=== PATIENT | female | born 1970 | race Caucasian/White ===

== ENCOUNTER 2016-11-07 17:51 | Inpatient (IN) | payer OTHER, BC ==
[~2016-11-07] VITALS: Ht 170.1 cm; Wt 85.0 kg
[2016-11-07] VITALS (8 sets, daily range): BP systolic 154–180; BP diastolic 64–88
--- NOTE | ~2016-11-07 | CON ---
[place], [place] REPORT OF CONSULTATION NAME: CLAYTON OSORIO UNIT #: [id number] ROOM: 425 DOCTOR: SHAGUFTA ALMANZATAMELA BIRTHDATE: [birth year] DOS: 11/08/2016 REQUESTING PHYSICIAN: Dr. Knutson REASON FOR CONSULTATION: Chest pain. ASSESSMENT: 1. Current presentation with right upper quadrant pain. 2. Right-sided chest pain. 3. Single elevated troponin out of 5 values. 4. Bigeminy occurring while patient in severe pain. 5. Recent cholecystectomy at [facility]. PLAN: 1. Continue cycle of cardiac enzymes including CPK and MB. 2. Proceed with echocardiogram on urgent basis. 3. Consider surgical consultation. 4. No further cardiac testing at this time. 5. Hold on Naprosyn and aspirin for now. HISTORY AND PHYSICAL: The patient is a pleasant 46-year-old female unknown to our practice, was referred by Dr. Knutson for evaluation of complaint of chest pain. Apparently, the pain has occurred after presenting with right upper quadrant pain following the patient's recent cholecystectomy at [facility]. The patient in current severe pain cannot communicate, but expressing the pain that started in the right upper quadrant following her surgery, the pain apparently is radiating to the right side of the chest along to the shoulder on the right side only. Nothing in the middle and substernal or left sided. No heaviness or tightness. It has some relation to inspiration. No fever, no chills. The patient did not have a bowel movement since her surgery. This has been a while now. The patient is nauseated and having a vomit bag next to her. The patient did not take her breakfast. So far, CT scan of the chest and abdomen and pelvis was negative for any acute abnormalities. V/Q scan was read as normal even though there is a questionable defect in the right upper lobe of the lungs. Prior to this presentation, the patient had been quite doing well and never had any cardiac complaint and never had any chest pain, chest pressure, heaviness, tightness or jaw pain, never had any symptomatic palpitation. No PND or orthopnea. No pedal edema. PAST MEDICAL HISTORY: As detailed in my assessment. SOCIAL HISTORY: The patient denies any tobacco, alcohol or illicit drug abuse. FAMILY HISTORY: There is no other family history of heart disease. CURRENT MEDICATIONS: Include, 1. Vitamin D. 2. Effexor. 3. Nolvadex. 4. Morphine. [place], [place] REPORT OF CONSULTATION NAME: CLAYTON OSORIO UNIT #: [id number] ROOM: 425 DOCTOR: TAMELA EAGLE MD BIRTHDATE: [birth year] 5. Colace. 6. Nitroglycerin. 7. Percocet. 8. Naprosyn. 9. Lovenox. 10. Restoril. 11. Zofran. 12. Magnesium. 13. Dulcolax. 14. Tylenol. ALLERGIES: THE PATIENT IS ALLERGIC TO IBUPROFEN. REVIEW OF SYSTEMS: This was not done today. The patient in moderate to severe distress due to her right upper quadrant pain and right chest pain. PHYSICAL EXAMINATION: GENERAL: The patient is alert, oriented x3. The patient is sitting up in a chair in moderate to severe pain, mainly right upper quadrant. The patient has a hand on the site of the surgery along with pain mainly in the right shoulder. No specific left substernal or left-sided chest pains. VITAL SIGNS: Blood pressure 158/81, heart rate 74, respiratory rate of 18, temperature 97.2. HEENT: Extraocular muscles intact. Pupils equal, round, reactive to light. Conjunctivae: No pallor. Throat: No petechiae. NECK: Good carotid upstroke. Unable to appreciate any bruit, no lymphadenopathy, no thyromegaly. HEART: S1, S2 with faint holosystolic murmur heard in the left upper sternal border. Loud P2. No rub. No retrosternal heave. CHEST AND BACK: No deformities. LUNGS: Significant decrease in air movement in the right lower lobe. No wheezing or rales. ABDOMEN: Obese, soft, significant tenderness with any superficial palpation. Difficult to evaluate any masses or bruits. There is no bowel sounds. LOWER EXTREMITIES: No edema with faint distal pulses. NEUROLOGIC: Grossly nonfocal. SKIN: No significant rash. DIAGNOSTIC DATA: Electrocardiogram showed normal sinus rhythm, mild nonspecific ST changes. Rhythm strip from last night showing the run of bigeminy. LABORATORY DATA: White count 6.9, then 10.0, then 10.2; hemoglobin 13.1, slightly elevated neutrophils even though it was normal on presentation. Potassium 4.4, creatinine 0.7, BUN ____. GFR more than 60%. Normal bilirubin and elevated ALT 178, elevated AST of 112. Magnesium 1.8, total cholesterol 218, HDL 42, LDL 135. TSH 0.6, T4 1.09. [place], [place] REPORT OF CONSULTATION NAME: CLAYTON OSORIO UNIT #: [id number] ROOM: 425 DOCTOR: TAMELA EAGLE MD BIRTHDATE: [birth year] TAMELA EAGLE MD CM:CONSTR:REPORT OF CONSULTATION 1028 11/09/16 1303 interface
[2016-11-07 18:17] LABS: BASO # 0.1 10*3/uL (0.0-0.1); EOS # 0.1 10*3/uL (0.0-0.4); HEMATOCRIT 38.9 % (37.0-47.0); HEMOGLOBIN 13.1 g/dl (12.0-16.0); IG # 0.1 10*3/uL (0.0-0.1); LYMPH # 1.4 10*3/uL (1.3-4.4); LYMPH % 20.8 % (27.0-41.0); MEAN CORPUSCULAR HGB 28.3 pg (27.0-31.0); MEAN CORPUSCULAR HGB CONC 33.7 g/dl (33.0-37.0); MEAN PLATELET VOLUME 10.4 fl (9.6-12.3); MONO # 0.5 10*3/uL (0.1-1.0); MONO % 7.2 % (3.0-9.0); NEUT # 4.7 10*3/uL (2.3-7.9); NEUT % 67.1 % (47.0-73.0); PLATELET COUNT AUTOMATED 191 10*3/uL (130-400); RED BLOOD COUNT 4.63 10*6/uL (4.10-5.10); RED CELL DISTRI WIDTH 12.5 % (0-14.5); WHITE BLOOD COUNT 6.9 10*3/uL (4.8-10.8)
[2016-11-07] MEDS ORDERED: TAMOXIFEN CITRA20 MG PO (18:19)
[2016-11-07] MEDS ORDERED: PERCOCET 325 MG1 TA2 PO (18:19)
[2016-11-07 18:34] LABS: ALBUMIN 3.9 gm/dl (3.1-4.5); ALKALINE PHOSPHATASE 61 U/L (45-117); BILIRUBIN, TOTAL 0.5 mg/dl (0.2-1.0); BUN 9 mg/dl (7-24); CARBON DIOXIDE 29 mmol/L (21-32); CHLORIDE 101 mmol/L (98-107); EST GLOM FILT AFRICAN AMERICAN > 60 ml/min; GLUCOSE 113 mg/dL (65-99); POTASSIUM 3.7 mmol/L (3.5-5.1); SGOT/AST 85 IU/L (3-35); SGPT/ALT 118 U/L (12-78); SODIUM 139 mmol/L (136-145); TOTAL PROTEIN 7.6 gm/dL (6.4-8.2)
[2016-11-07 20:13] LABS: LA>2 REFLEX 2 HR DRAW NOW
[2016-11-08 00:03] VITALS: BP 170/84
[2016-11-08 01:56] LABS: BILIRUBIN NEGATIVE (NEGATIVE); BLOOD 1+ (NEGATIVE); CLARITY SL CLOUDY (CLEAR); COLOR YELLOW (YELLOW); GLUCOSE NEGATIVE (NEGATIVE); KETONE NEGATIVE (NEGATIVE); LEUKO ESTERASE TRACE (NEGATIVE); NITRITE NEGATIVE (NEGATIVE); PROTEIN NEGATIVE (NEGATIVE); SPECIFIC GRAVITY <= 1.005 (1.005-1.030); UROBILINOGEN 0.2 E.U./dl (0.2-1.0)
[2016-11-08 02:02] LABS: EPITHELIAL CELLS TNTC; URINE REFLEX COMMENT YES (NO); YEAST TRACE
[2016-11-08 03:15] VITALS: BP 144/63
[2016-11-08] MEDS ORDERED: EFFEXOR XR75 M1 PO (03:32)
[2016-11-08] MEDS ORDERED: NAPROSYN500 MG PO (03:33)
[2016-11-08 05:55] LABS: ALBUMIN 3.5 gm/dl (3.1-4.5); BILIRUBIN, TOTAL 0.9 mg/dl (0.2-1.0); BUN 7 mg/dl (7-24); CARBON DIOXIDE 28 mmol/L (21-32); CHLORIDE 102 mmol/L (98-107); CHOLESTEROL 218 mg/dL (<200); EST GLOM FILT AFRICAN AMERICAN > 60 ml/min; GLUCOSE 128 mg/dL (65-99); MAGNESIUM 1.8 mg/dL (1.5-2.1); PHOSPHOROUS 2.5 mg/dL (2.5-4.9); POTASSIUM 4.3 mmol/L (3.5-5.1); SGOT/AST 90 IU/L (3-35); SGPT/ALT 122 U/L (12-78); SODIUM 138 mmol/L (136-145); TOTAL PROTEIN 6.9 gm/dL (6.4-8.2); TRIGLYCERIDES 207 mg/dl (<150); VLDL CHOLESTEROL 41 mg/dL (6-40)
[2016-11-08 06:01] LABS: ALKALINE PHOSPHATASE 62 U/L (45-117); FREE T4 1.09 ng/dl (0.76-1.46); HDL CHOLESTEROL 42 mg/dl (40-60); LDL CHOLESTEROL 135 mg/dL (9-159); THYROID STIM HORMONE (HS) 0.642 uIU/ml (0.358-4.75)
[2016-11-08 06:14] LABS: BASO % 0.4 % (0.0-1.0); EOS % 0.1 % (1.0-4.0); HEMOGLOBIN 12.9 g/dl (12.0-16.0); IG # 0.1 10*3/uL (0.0-0.1); LYMPH # 0.6 10*3/uL (1.3-4.4); LYMPH % 5.7 % (27.0-41.0); MEAN CELL VOLUME 84.2 fl (81.0-99.0); MEAN CORPUSCULAR HGB 27.9 pg (27.0-31.0); MEAN CORPUSCULAR HGB CONC 33.1 g/dl (33.0-37.0); MEAN PLATELET VOLUME 10.8 fl (9.6-12.3); MONO # 0.8 10*3/uL (0.1-1.0); MONO % 7.6 % (3.0-9.0); NEUT # 8.5 10*3/uL (2.3-7.9); NEUT % 85.1 % (47.0-73.0); PLATELET COUNT AUTOMATED 208 10*3/uL (130-400); RED BLOOD COUNT 4.63 10*6/uL (4.10-5.10); RED CELL DISTRI WIDTH 12.5 % (0-14.5)
[2016-11-08 06:25] LABS: PROTHROMBIN TIME 10.2 SECONDS (9.0-12.4)
[2016-11-08 06:56] LABS: HEMOGLOBIN A1c 4.8 % (4.8-5.6)
[2016-11-08 07:10] LABS: FOLIC ACID 18.76 ng/mL (>5.38); VITAMIN D, 25-HYDROXY 24.1 ng/mL (30-100)
[2016-11-08 08:00] VITALS: BP 150/68
[2016-11-08 12:00] VITALS: BP 141/66
[2016-11-08 16:00] VITALS: BP 141/74
[2016-11-08 17:43] LABS: TROPONIN I 0.028 ng/ml (<0.045)
[2016-11-08 17:48] LABS: CKMB < 0.5 ng/ml (0.5-3.6)
[2016-11-08 18:55] LABS: BASO # 0.1 10*3/uL (0.0-0.1); BASO % 0.7 % (0.0-1.0); EOS % 0.3 % (1.0-4.0); HEMATOCRIT 41.4 % (37.0-47.0); HEMOGLOBIN 14.1 g/dl (12.0-16.0); IG # 0.2 10*3/uL (0.0-0.1); LYMPH # 0.8 10*3/uL (1.3-4.4); LYMPH % 8.1 % (27.0-41.0); MEAN CELL VOLUME 83.8 fl (81.0-99.0); MEAN CORPUSCULAR HGB 28.5 pg (27.0-31.0); MEAN CORPUSCULAR HGB CONC 34.1 g/dl (33.0-37.0); MEAN PLATELET VOLUME 10.4 fl (9.6-12.3); PLATELET COUNT AUTOMATED 217 10*3/uL (130-400); RED BLOOD COUNT 4.94 10*6/uL (4.10-5.10); RED CELL DISTRI WIDTH 12.4 % (0-14.5); WHITE BLOOD COUNT 10.2 10*3/uL (4.8-10.8)
[2016-11-08 19:06] LABS: BUN 6 mg/dl (7-24); CARBON DIOXIDE 30 mmol/L (21-32); CHLORIDE 100 mmol/L (98-107); EST GLOM FILT AFRICAN AMERICAN > 60 ml/min; GLUCOSE 133 mg/dL (65-99); POTASSIUM 4.5 mmol/L (3.5-5.1); SODIUM 135 mmol/L (136-145)
[2016-11-08 20:00] VITALS: BP 160/78
[2016-11-09] VITALS: BP 123/65
[2016-11-09 06:39] LABS: ALBUMIN 3.4 gm/dl (3.1-4.5); ALKALINE PHOSPHATASE 84 U/L (45-117); BUN 6 mg/dl (7-24); CARBON DIOXIDE 33 mmol/L (21-32); CHLORIDE 100 mmol/L (98-107); EST GLOM FILT AFRICAN AMERICAN > 60 ml/min; GLUCOSE 111 mg/dL (65-99); POTASSIUM 4.4 mmol/L (3.5-5.1); SGOT/AST 112 IU/L (3-35); SGPT/ALT 178 U/L (12-78); SODIUM 138 mmol/L (136-145); TOTAL PROTEIN 7.2 gm/dL (6.4-8.2)
[2016-11-09 08:00] VITALS: BP 158/81
[2016-11-09 10:37] LABS: CPK 19 U/L (26-192)
[2016-11-09 10:38] LABS: CKMB < 0.5 ng/ml (0.5-3.6)
[2016-11-09 12:00] VITALS: BP 154/85
[2016-11-09 12:37] LABS: TROPONIN I < 0.015 ng/ml (<0.045)
[2016-11-09 16:00] VITALS: BP 139/76
[2016-11-09 20:00] VITALS: BP 121/69
[2016-11-10] VITALS: BP 130/71
[2016-11-10 06:10] LABS: BASO # 0.1 10*3/uL (0.0-0.1); BASO % 0.7 % (0.0-1.0); EOS # 0.2 10*3/uL (0.0-0.4); HEMATOCRIT 35.8 % (37.0-47.0); IG # 0.3 10*3/uL (0.0-0.1); LYMPH # 1.7 10*3/uL (1.3-4.4); LYMPH % 19.2 % (27.0-41.0); MEAN CELL VOLUME 84.2 fl (81.0-99.0); MEAN CORPUSCULAR HGB 27.8 pg (27.0-31.0); MEAN PLATELET VOLUME 10.6 fl (9.6-12.3); MONO % 10.8 % (3.0-9.0); NEUT # 5.7 10*3/uL (2.3-7.9); NEUT % 64.5 % (47.0-73.0); PLATELET COUNT AUTOMATED 224 10*3/uL (130-400); RED BLOOD COUNT 4.25 10*6/uL (4.10-5.10); RED CELL DISTRI WIDTH 12.7 % (0-14.5); WHITE BLOOD COUNT 8.9 10*3/uL (4.8-10.8)
[2016-11-10 06:11] LABS: HEMOGLOBIN 11.8 g/dl (12.0-16.0)
[2016-11-10 06:26] LABS: BUN 8 mg/dl (7-24); CARBON DIOXIDE 32 mmol/L (21-32); CHLORIDE 98 mmol/L (98-107); EST GLOM FILT AFRICAN AMERICAN > 60 ml/min; GLUCOSE 103 mg/dL (65-99); POTASSIUM 3.7 mmol/L (3.5-5.1); SODIUM 135 mmol/L (136-145)
[2016-11-10 08:00] VITALS: BP 113/69
[2016-11-10 12:00] VITALS: BP 116/72
[2016-11-10 16:00] VITALS: BP 121/57
[2016-11-10] MEDS ORDERED: D-1000 185 MG-11 TAB PO (16:13)
[2016-11-10] MEDS ORDERED: MIRALAX POWDER17 G1 PO (16:13)
== END 2016-11-10 18:01 | disposition home or self-care (01) | DRG 391 ==
LOC: ED 17:51 → 4E 11-08 02:45 → EDHOLD 11-08 02:45 → 4E 11-08 02:50
PROVIDERS: Emergency Medicine; Family Medicine; Internal Medicine; Internal Medicine Cardiovascular Disease; Internal Medicine Hospice and Palliative Medicine
DX: K21.9 Gastro-esophageal reflux disease without esophagitis (principal); J18.9 Pneumonia, unspecified organism; E87.2 Acidosis; C50.911 Malignant neoplasm of unspecified site of right female breast; K59.03 Drug induced constipation; E78.5 Hyperlipidemia, unspecified; M79.1 Myalgia; E55.9 Vitamin D deficiency, unspecified; R74.0 Nonspecific elevation of levels of transaminase and lactic acid dehydrogenase [LDH]; Z90.49 Acquired absence of other specified parts of digestive tract; Z79.899 Other long term (current) drug therapy; Z88.8 Allergy status to other drugs, medicaments and biological substances; Z83.3 Family history of diabetes mellitus; Z82.49 Family history of ischemic heart disease and other diseases of the circulatory system; Z80.3 Family history of malignant neoplasm of breast